=== PATIENT | male | born 1975 | race American Indian/Alaskan Native ===

== ENCOUNTER 2016-10-07 08:18 | Emergency (ER) | payer OTHER ==
[2016-10-07] MEDS ORDERED: XYLOCAINE 1% 20 mL ONE (11:06)
[2016-10-07] MEDS ORDERED: NACL 0.9% 500 ML IR ONE (11:07)
[2016-10-07] MEDS ORDERED: TORADOL ONE (11:16)
[2016-10-07] MEDS ORDERED: TORADOL IM ONE (11:31)
--- NOTE | 2016-10-07 12:08 | XRay Report ---
RIGHT HAND 2 VIEWS: 10/07/16 08:32:00 CLINICAL: Trauma with laceration. FINDINGS: The third, fourth and fifth digits are flexed on the AP view. A horizontal lucency at the lateral base of the proximal phalanx of the index finger is suspicious for fracture. However, it is only identified on the AP view. No other fracture. There is moderate soft tissue swelling of all digits. No foreign body or soft tissue air. IMPRESSION: No foreign body. Possible acute closed posttraumatic fracture at the base of the proximal phalanx of the index finger.
[2016-10-07] MEDS ORDERED: MARCAINE 0.5% INFILTRATI ONE (12:12)
[2016-10-07] MEDS ORDERED: BOOSTRIX IM ONE (12:12)
[2016-10-07] MEDS ORDERED: ANCEF/NS 1 GM/50 ML 1 GM/50 ML BAG IV ONE (12:13)
--- NOTE | 2016-10-07 12:13 | Emergency Department Report ---
Upper Extremity - HPI Chief Complaint: Wound/Laceration Stated Complaint: HAND LAC Time Seen by Provider: 10/07/16 11:19 Upper Extremity: Left Hand Occurred When: Today Mechanism: Other (laceration from perlite grinder) Symptoms: Yes Pain with Movement, Yes Deformity, Yes Limited Range of Movement, Yes Numbness, Yes Swelling, Yes Bruising/Ecchymosis, Yes Laceration or Abrasion , No Weakness Other History: This is a 41-year-old male. He is right-hand dominant. 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 He thinks that laceration was sustained at approximately 8:00 AM. No other injuries. No other complaints. Has mild numbness to index finger. Patient uncertain of last tetanus vaccination. ED Review of Systems ROS: Stated complaint: HAND LAC Other details as noted in HPI Constitutional: denies: fever Eyes: denies: vision change ENT: denies: epistaxis Respiratory: denies: cough Cardiovascular: denies: palpitations Gastrointestinal: denies: abdominal pain Genitourinary: denies: urgency Musculoskeletal: arthralgia, myalgia Skin: lesions Neurological: numbness Psychiatric: anxiety ED Past Medical Hx - Past Medical History Previous Medical History?: No - Surgical History Past Surgical History?: No - Social History Smoking Status: Never Smoker Substance Use Type: Alcohol - Medications Home Medications: Home Medications Medication Instructions Recorded Confirmed Last Taken Type Cephalexin [Keflex] 500 mg PO QID #20 capsule 10/07/16 Unknown Rx Ketorolac [Toradol] 10 mg PO Q6H PRN #20 tablet 10/07/16 Unknown Rx Upper Extremity Exam - Exam General: Vital signs noted. No distress. Alert and acting appropriately. On the volar aspect of the right hand, there is a macerated circumferential 6 cm laceration. Sensation is decreased to light touch on the pointer and middle finger on the volar aspect. Thumb opposition is weak. Thumb extension and circumduction intact. On the dorsal aspect of the hand, sensation is intact to light touch in the superior aspect/dorsal aspect of digits pinky, ring, middle and index finger. There are 2+ pulses noted in the radial and ulnar distribution, and there is good capillary refill in 5 digits on the right upper extremity. Patient has some pain with abduction and adduction for digits 2, 3, 4 and 5. FDP, FDS intact for the pinky and ring finger. FDP appears to be weak in the third digit, FDS is partially intact. FDP, FDS weak in the pointer finger. Head and Torso: No HEENT Abnormality, No Neck Tenderness, No Chest/Lungs Abnormality, No Abdominal Tenderness, No Back Tenderness Shoulder Exam: Yes Normal Range of Motion in Shoulder, No Shoulder Tenderness, No Clavicle Tenderness, No Shoulder Deformity, No AC Joint Tenderness Arm Exam: No Arm/Humerus Tenderness, No Arm Deformity Elbow: Yes Normal Range of Motion in Elbow, No Elbow Tenderness, No Elbow Deformity Forearm: No Forearm Tenderness, No Forearm Deformity, No Pain with Pronation, No Pain with Supination Wrist: Yes Normal ROM in Wrist, No Wrist Tenderness, No Wrist Deformity, No Snuffbox Tenderness, No Pain with Axial Thumb Compression Hand: Yes Hand Tenderness, Yes Hand Deformity, Yes Tendon Dysfunction, No Digit Tenderness, No Normal ROM in Digit(s), No Digit(s) Deformity CMS Exam: Yes Broken Skin, Yes Normal Distal Pulses, Yes Normal Capillary Refill , No Normal Distal Sensation ED Course Vital Signs 10/07/16 08:23 Temperature 98.5 F Pulse Rate 76 Respiratory 16 Rate Blood Pressure 135/92 O2 Sat by Pulse 97 Oximetry - Reevaluation(s) Reevaluation #1: 10/07/16 15:51 Differential diagnosis: Hand laceration, possible open fracture, tendon disruption Assessment and plan: 41-year-old male 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 May have possible tendon dysfunction. He is afebrile with reassuring vital signs. The laceration is irrigated thoroughly with copious sterile saline, and repaired by the physician operational assistant. The case is presented to the orthopedic hand surgeon professional driver for [place], Dr. Gage, who recommended primary closure, and close follow-up this week. Given the patient's physical examination, I do not suspect arterial insufficiency at this time. The patient is reliable, and understands the importance of close outpatient follow-up with the orthopedic surgeon. He is specifically instructed that not following up in a timely fashion may result in disability or loss of functionality, paralysis. ED Medical Decision Making - Lab Data Vital Signs 10/07/16 10/07/16 08:23 12:48 Temperature 98.5 F 97.8 F Pulse Rate 76 72 Respiratory 16 18 Rate Blood Pressure 135/92 Blood Pressure 119/90 [Left] O2 Sat by Pulse 97 100 Oximetry - Radiology Data Radiology results: report reviewed, image reviewed X-ray of the right hand demonstrates no obvious foreign body. A horizontal lucency at the lateral base of the proximal phalanx of the index finger is suspicious for fracture. It is only identified on the AP view. There is moderate soft tissue swelling in all the digits. No foreign body or soft tissue air is noted. Critical care attestation.: If time is entered above; I have spent that time in minutes in the direct care of this critically ill patient, excluding procedure time. ED Disposition Clinical Impression: Laceration of right hand Disposition: DISCHARGED TO HOME OR SELFCARE Is pt being admited?: No Does the pt Need Aspirin: No Condition: Stable Additional Instructions: Take the antibiotics and pain medication as ordered. Keep the right hand splint in place. I recommend that you follow-up with a hand surgeon as soon as possible. The hand surgeon is Dr. Joaquin Gage; phone number [phone] (this is his attendance secretary Jennie.) Other phone numbers for he can be reached include [phone]. It is very important to follow-up as soon as possible with outpatient hand surgeon. X-ray suggested possible fracture to one of the fingers, and her physical exam suggested laceration of tendons in the fingers. Not following up in a timely fashion with the hand surgeon may result in disability, contracture , paralysis, loss of functionality the right upper extremity. Return to the ER right away with new pain, worsened pain, migration of pain, fevers or chills, intractable nausea or vomiting, inability to tolerate liquids these. Prescriptions: Cephalexin [Keflex] 500 mg PO QID #20 capsule Ketorolac [Toradol] 10 mg PO Q6H PRN #20 tablet PRN Reason: Pain Referrals: PRIMARY CARE, [Primary Care Provider] - 3-5 Days Forms: Work/School Release Form(ED)
[2016-10-07] MEDS ORDERED: XYLOCAINE 1%/ EPI 1:100,000 INFILTRATI ONE (13:38)
[2016-10-07] MEDS ORDERED: XYLOCAINE 1%/ EPI 1:100,000 INFILTRATI NR (14:00)
--- NOTE | 2016-10-07 16:26 | Emergency Department Report ---
Blank Doc - Documentation Documentation: Procedure Note: hand laceration At request of Dr. 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 small straigjht laceration on base of index finger on volar aspect of hand. prep: Wounds thoroughly irrigated with 3000 mL of normal saline and iodine mixture, I irrigated under some pressure with saline flushes and iodine scrub sponge. Wound anesthetized with 1% lidocaine and epinephrine, local wound infiltration with approximately 12-13 mL of anesthetic. Good anesthesia achieved, minimal bleeding. 13 External 3-0 proline sutures placed along wound site to achieve close, reasonable approximation of wound. As per Dr. Mckee did not place sutures too tightly to mitigate any potential infection. In palm wound i placed 3 deep 4 -0 chromic gut sutures in order to reduce tension Procedure tolerated well, minimal bleeding, triple antibiotic ointment and gauze placed over the site
[2016-10-07 17:24] VITALS: BP 143/74
== END 2016-10-07 17:00 | disposition home or self-care (01) ==
LOC: ED 08:18
DX: S61.411A Laceration without foreign body of right hand, initial encounter (principal); W31.89XA Contact with other specified machinery, initial encounter; Y93.9 Activity, unspecified; Y92.9 Unspecified place or not applicable; Y99.9 Unspecified external cause status
CPT/HCPCS: 12002; 73120; 90471; 90715; 96365; 96372; 99283; J0690; J1885